=== PATIENT | male | born 1950 | race Caucasian/White ===

== ENCOUNTER 2021-12-22 12:21 | Outpatient (CLI) | payer OTHER, SELFPAY ==
--- NOTE | 2021-12-22 13:00 | CRLHL7_ITS ---
For Patients: As a result of the 21st Century Cures Act, medical imaging exams and procedure reports are released immediately into your electronic medical record. You may view this report before your referring provider. If you have questions, please contact your health care provider. INDICATION: Back pain. TECHNIQUE: Multiplanar multisequence noncontrast MR images acquired through the lumbar spine. COMPARISON: None. FINDINGS: The lumbar lordosis is preserved. Mild rightward lumbar curvature. Mild chronic L1 vertebral body anterior wedging. No acute fracture. No concerning T1 hypointense marrow replacing lesions. Conus terminates at T12-L1. T12-L1: Bdie-ix-zdxxguru disc degeneration. Shallow disc bulging. No spinal canal or neural foraminal narrowing. L1-2: Moderate disc degeneration and mild disc height loss. Posterior disc bulge. Mild facet arthropathy. Mild spinal canal narrowing. No neural foraminal narrowing. L2-3: Mild retrolisthesis. Posterior disc bulge with superimposed left central/subarticular disc extrusion demonstrating cephalad and caudal migration measuring approximately 23 x 10 mm (CC/AP). Mild facet arthropathy. Severe spinal canal and left greater than right lateral recess stenosis. No neural foraminal narrowing. L3-4: Moderately advanced disc degeneration. Shallow posterior disc bulge. Moderate facet arthropathy. Epidural fat prominence. Moderately severe thecal sac narrowing. Wjlb-go-fwsddeiq right and minimal left neural foraminal narrowing. L4-5: Moderately advanced disc degeneration. Shallow posterior disc bulge. Epidural fat prominence. Moderately advanced left and moderate facet arthropathy. Thickening ligamentum flavum. Moderate spinal canal and hxbs-jvgxjap-gaxj-right lateral recess narrowing. Aicu-cx-kidtssai bilateral neural foraminal narrowing. L5-S1: Moderate disc degeneration. Shallow broad-based right central disc protrusion mildly contacts traversing right S1 nerve roots. Oxmk-cw-iqffjacz facet arthropathy. No spinal canal narrowing. Mild right and minimal left neural foraminal narrowing. Sacroiliac joint degenerative changes. Incompletely visualized, large T2 hyperintense lesion arising from the right kidney, most typical for a renal cyst. IMPRESSION: 1. At L2-3, left central/subarticular disc extrusion demonstrating cephalad and caudal migration severely narrows the spinal canal and left lateral recess with likely impingement of traversing left L3 nerve roots. 2. At L3-4, spondylosis and epidural fat prominence contribute to moderately severe thecal sac narrowing. There is fixs-lk-mwqxwnzr right neural foraminal narrowing. 3. At L4-5, moderate spinal canal and left greater than right lateral recess narrowing. There is jkrh-hx-kvajyimd bilateral neural foraminal narrowing. 4. At L5-S1, shallow broad-based right central disc protrusion mildly contacts traversing right S1 nerve roots. Dictated by Nir Díaz MD @ 12/22/2021 4:31:11 PM (Electronically Signed)
== END 2021-12-22 12:22 | disposition home or self-care (01) ==
LOC: MRI 12:26
DX: M54.50 Low back pain, unspecified (principal); M51.26 Other intervertebral disc displacement, lumbar region; M51.27 Other intervertebral disc displacement, lumbosacral region
CPT/HCPCS: 72148